=== PATIENT | female | born 1955 ===

== ENCOUNTER 2023-08-07 09:06 | Outpatient (REF) | payer OTHER, SELFPAY ==
--- NOTE | ~2023-08-07 | XR_ITS ---
EXAM: X-RAY LUMBAR SPINE AND RIGHT HIP CLINICAL INFORMATION: Right-sided low back pain, chronic right hip pain. TECHNIQUE: 3 views of the lumbar spine. 2 views of the right hip. COMPARISON: None. FINDINGS: Lumbar spine: The bones are diffusely demineralized. Surgical clips in the right upper quadrant. Advanced degenerative changes in the imaged lower thoracic spine. Advanced facet arthritis in the eji-sx-vbpgo lumbar spine. Advanced multilevel lumbar spondylosis with multilevel loss of disc space height and anterior hypertrophic change/syndesmophytes. Abundant transverse calcifications extending from the lower lumbar spine along the superior aspects of the bilateral iliac wings characteristic of ossification of ligaments. Degenerative changes in the imaged lower thoracic spine. Degenerative changes with sclerosis and narrowing in the bilateral sacroiliac joints. XR/XR lumbar spine 2-3V IMPRESSION: 1. Advanced multilevel lumbar spondylosis. 2. Advanced facet arthritis in the mid to lower lumbar spine. 3. Degenerative changes with sclerosis and narrowing in the bilateral sacroiliac joints. 4. Abundant transverse calcifications extending from the lower lumbar spine along the superior aspects of the bilateral iliac wings characteristic of ossification of ligaments, as well as other associated findings as detailed above suggest a possible component of an inflammatory arthritis such as ankylosing spondylitis. Correlation with clinical exam recommended to determine further management.
--- NOTE | ~2023-08-07 | XR_ITS ---
EXAM: X-RAY LUMBAR SPINE AND RIGHT HIP CLINICAL INFORMATION: Right-sided low back pain, chronic right hip pain. TECHNIQUE: 3 views of the lumbar spine. 2 views of the right hip. COMPARISON: None. FINDINGS: Lumbar spine: The bones are diffusely demineralized. Surgical clips in the right upper quadrant. Advanced degenerative changes in the imaged lower thoracic spine. Advanced facet arthritis in the pvy-ys-hbbol lumbar spine. Advanced multilevel lumbar spondylosis with multilevel loss of disc space height and anterior hypertrophic change/syndesmophytes. Abundant transverse calcifications extending from the lower lumbar spine along the superior aspects of the bilateral iliac wings characteristic of ossification of ligaments. Degenerative changes in the imaged lower thoracic spine. Degenerative changes with sclerosis and narrowing in the bilateral sacroiliac joints. XR/XR hip RT w PEL1V IMPRESSION: 1. Advanced multilevel lumbar spondylosis. 2. Advanced facet arthritis in the mid to lower lumbar spine. 3. Degenerative changes with sclerosis and narrowing in the bilateral sacroiliac joints. 4. Abundant transverse calcifications extending from the lower lumbar spine along the superior aspects of the bilateral iliac wings characteristic of ossification of ligaments, as well as other associated findings as detailed above suggest a possible component of an inflammatory arthritis such as ankylosing spondylitis. Correlation with clinical exam recommended to determine further management.
[2023-08-07 10:34] LABS: Potassium 4.5 mmol/L (3.3-5.1)
== END 2023-08-07 09:07 | disposition home or self-care (01) ==
LOC: HO.XRAY 09:06
PROVIDERS: PCP Internal Medicine; Visit Provider Internal Medicine
DX: M47.816 Spondylosis without myelopathy or radiculopathy, lumbar region (principal); M24.19 Other articular cartilage disorders, other specified site; E87.5 Hyperkalemia; M25.551 Pain in right hip; M54.41 Lumbago with sciatica, right side; G89.29 Other chronic pain
CPT/HCPCS: 36415; 72100; 73502; 84132

== ENCOUNTER 2023-11-13 08:45 | Outpatient (REF) | payer OTHER, SELFPAY ==
--- NOTE | ~2023-11-13 | FL_ITS ---
EXAMINATION: XR FLUOROSCOPY UPPER GI WITH AIR CLINICAL INFORMATION: Dysphagia COMPARISON: None TECHNIQUE: Fluoroscopic air contrast upper GI examination was performed utilizing standard techniques with thin and thick barium and effervescent granules. Numerous spot images were obtained. FINDINGS: Lateral cine images of the oropharynx and hypopharynx demonstrate normal swallow mechanism with normal epiglottic inversion and soft palate elevation. No tracheal penetration, glottic or subglottic aspiration identified. No nasopharyngeal reflux present. There is a small pharyngeal diverticulum present. There was no significant cricopharyngeal achalasia. There is moderate extrinsic compression of the posterior cervical esophagus at level C5-C6 due to an anterior bridging osteophyte. Dual and single contrast images of the esophagus demonstrate normal caliber and contour. There is felinization of the mid and distal esophageal mucosa. No evidence of stricture, mass, or ulcerations identified. There is to and fro motion of the barium column with nonpropulsive tertiary contractions noted throughout the esophagus. Surgical clips are present in the right upper quadrant. No evidence of hiatus hernia identified. No significant gastroesophageal reflux was seen during the course of the examination and on reflux views. Dual contrast and single contrast images of the stomach demonstrated a normal contour. The gastric rugal folds are mildly thickened appearance which suggests gastritis. No masses or ulcerations are seen. And mucosal pattern without evidence of mass, ulceration, or other abnormality. Contrast freely passed into the gastric antrum and duodenal bulb without delay. Single and air-contrast images of the duodenal bulb demonstrate no abnormality. The duodenal sweep has a normal appearance, course, and mucosal fold appearance. The imaged proximal jejunum has a normal fold pattern and caliber. FLUOROSCOPY TIME: 5 minutes 10 seconds Number of Spot Images: 5 Number of Cine: 17 DOSE AREA PRODUCT: 2648 uGy-m2 (microgray-meter squared) FL/FL barium swallow with air IMPRESSION: 1. Small pharyngeal diverticulum is present. 2. Moderate extrinsic compression of the posterior cervical esophagus at the level of C5-C6 due to an anterior bridging osteophyte. 3. Esophageal dysmotility. 4. There is felinization of the mid and distal esophagus. This is a benign finding that can be associated with chronic reflux. 5. Status post cholecystectomy. 6. Mildly thickened gastric rugal folds, which suggest gastritis. This procedure was performed by Victoriano Jacome PA-C, and supervised by Dr. Cain
== END 2023-11-13 08:46 | disposition home or self-care (01) ==
LOC: HO.XRAY 08:45
PROVIDERS: PCP Internal Medicine; Visit Provider Internal Medicine
DX: R13.13 Dysphagia, pharyngeal phase (principal)
CPT/HCPCS: 74221

== ENCOUNTER → 2023-11-13 08:47 | Outpatient (BNV) | payer OTHER, SELFPAY | PROVIDERS: PCP Internal Medicine; Visit Provider Physician Assistant Surgical | DX: R13.10 Dysphagia, unspecified (principal) | CPT/HCPCS: 74246 ==

== ENCOUNTER 2023-12-29 11:13 | Emergency (ER) | payer OTHER, SELFPAY ==
--- NOTE | ~2023-12-29 | CT_ITS ---
EXAMINATION: CT HEAD WITHOUT CONTRAST CT CERVICAL SPINE WITHOUT CONTRAST CLINICAL INFORMATION: Fall. COMPARISON: None currently available TECHNIQUE: CT of the head and cervical spine were performed without intravenous contrast. Multiplanar reformats were rendered and reviewed. This CT examination was performed using dose optimization techniques as appropriate, variously including the following: *Automated exposure control *Adjustment of mA and/or kV according to patient size (this includes techniques or standardized protocols for targeted exams where dose is matched to indication/reason for exam; i.e. extremities or head) *Use of iterative reconstruction technique DLP: 1162 mGy-cm. FINDINGS: CT head: No intracranial hemorrhage, large infarction, or mass lesion is seen. Nonspecific bilateral periventricular white matter hypodensity No extra-axial collection is appreciated. The ventricles are normal in size and configuration without evidence of hydrocephalus. The visualized paranasal sinuses appear clear. Scattered bilateral mastoid air cell opacification. Right harvey bullosa. Mild deviation of the nasal septum toward the left. CT cervical spine: The vertebral body heights appear maintained. No cervical spine fracture is seen. The cervical alignment appears normal. Florid, flowing ossification along the anterior aspects of C2-C5 as well as C6-C7. Posterior flowing ossification most notably at C6-C7, with associated narrowing of the spinal canal. Relative preservation of disc spaces, with mild disc space narrowing at C6-C7. The paraspinal soft tissues appear within normal limits. The partially imaged lung apices appear clear. CT/CT head/brain wo IV con IMPRESSION: CT head: No acute intracranial finding. Nonspecific bilateral periventricular white matter hypodensity. Differential diagnosis includes, but is not limited to, chronic ischemic changes and, less likely, demyelinating disease, etc. Scattered bilateral mastoid air cell opacification suggesting mastoiditis. CT cervical spine: No cervical spine fracture or traumatic malalignment identified. Findings consistent with cervical spinal diffuse idiopathic skeletal hyperostosis (DISH). Electronically signed by: Naldo Edwards MD 12/29/2023 01:04 PM EDT
--- NOTE | ~2023-12-29 | CT_ITS ---
EXAMINATION: CT HEAD WITHOUT CONTRAST CT CERVICAL SPINE WITHOUT CONTRAST CLINICAL INFORMATION: Fall. COMPARISON: None currently available TECHNIQUE: CT of the head and cervical spine were performed without intravenous contrast. Multiplanar reformats were rendered and reviewed. This CT examination was performed using dose optimization techniques as appropriate, variously including the following: *Automated exposure control *Adjustment of mA and/or kV according to patient size (this includes techniques or standardized protocols for targeted exams where dose is matched to indication/reason for exam; i.e. extremities or head) *Use of iterative reconstruction technique DLP: 1162 mGy-cm. FINDINGS: CT head: No intracranial hemorrhage, large infarction, or mass lesion is seen. Nonspecific bilateral periventricular white matter hypodensity No extra-axial collection is appreciated. The ventricles are normal in size and configuration without evidence of hydrocephalus. The visualized paranasal sinuses appear clear. Scattered bilateral mastoid air cell opacification. Right harvey bullosa. Mild deviation of the nasal septum toward the left. CT cervical spine: The vertebral body heights appear maintained. No cervical spine fracture is seen. The cervical alignment appears normal. Florid, flowing ossification along the anterior aspects of C2-C5 as well as C6-C7. Posterior flowing ossification most notably at C6-C7, with associated narrowing of the spinal canal. Relative preservation of disc spaces, with mild disc space narrowing at C6-C7. The paraspinal soft tissues appear within normal limits. The partially imaged lung apices appear clear. CT/CT cervical spine wo IV con IMPRESSION: CT head: No acute intracranial finding. Nonspecific bilateral periventricular white matter hypodensity. Differential diagnosis includes, but is not limited to, chronic ischemic changes and, less likely, demyelinating disease, etc. Scattered bilateral mastoid air cell opacification suggesting mastoiditis. CT cervical spine: No cervical spine fracture or traumatic malalignment identified. Findings consistent with cervical spinal diffuse idiopathic skeletal hyperostosis (DISH). Electronically signed by: Naldo Edwards MD 12/29/2023 01:04 PM EDT RP
--- NOTE | ~2023-12-29 | CT_ITS ---
EXAMINATION: CT FACIAL BONES WITHOUT CONTRAST CLINICAL INFORMATION: Fall. COMPARISON: None available. TECHNIQUE: CT of the maxillofacial structures was performed without intravenous contrast. Multiplanar reformats were rendered and reviewed. This CT examination was performed using dose optimization techniques as appropriate, variously including the following: *Automated exposure control *Adjustment of mA and/or kV according to patient size (this includes techniques or standardized protocols for targeted exams where dose is matched to indication/reason for exam; i.e. extremities or head) *Use of iterative reconstruction technique DLP: 1162 mGy-cm FINDINGS: No significant preseptal soft tissue swelling is appreciated. The orbital miles and orbital rims appear intact. There is no infiltration of the intraorbital fat or evidence of retrobulbar hematoma. The extraocular muscles and optic nerve sheath complexes are symmetric and normal in appearance. The globes appear normal and symmetric. The zygomas and zygomaticomaxillary buttresses appear intact. The nasal bones and tivr-mgiqhq-cyvjana complex appear intact. Right harvey bullosa. Mild deviation of the nasal septum toward the left. The maxillary alveolus and hard palate appear intact. The mandible appears intact, with mandibular condyles normally positioned within the glenoid fossa. The osseous structures of the central skull base appear intact. The paranasal sinuses appear clear, without fluid levels. The middle ear cavities appear clear. Scattered bilateral mastoid air cell opacification. CT/CT facial bones wo IV con IMPRESSION: No acute traumatic injury identified. Electronically signed by: Naldo Edwards MD 12/29/2023 01:11 PM EDT
[2023-12-29 11:27] VITALS: BP 175/77; PULSE 83; RESP 16; TEMP 36.2; O2SAT 100; BMI 28.1
--- NOTE | 2023-12-29 11:30 | ED.GENADULT ---
HPI - General Adult General Chief complaint: Fall Stated complaint: Fall nose inj Time Seen by Provider: 12/29/23 13:58 Source: patient, family, RN notes reviewed and old records reviewed Mode of arrival: EMS Limitations: no limitations History of Present Illness ED Provider: Jake MARES narrative: 68-year-old female presents for evaluation of a facial injury. Patient reports that she was taking the trash out this morning. She tripped and fell forward while she was taking the trash out She landed on her face She did not lose consciousness She complains of mild right-sided neck pain and mostly pain to her nose. She reports that her nose was bleeding for a few minutes but did resolve She is not anticoagulated Related Data Allergies Allergy/AdvReac Type Severity Reaction Status Date / Time Tetanus Vaccines and Toxoid Allergy Unknown UNKNOWN Verified 12/29/23 11:31 [Tetanus] Review of Systems Constitutional: Constitutional: Denies body ache(s), Denies chills, Denies fever(s), Denies frequent falls and Reports headache(s) ENT: Denies vertigo, Denies dizziness, Reports headache(s) and Reports neck pain Cardiovascular: Cardiovascular: Denies chest pain and Denies dyspnea Respiratory: Respiratory: Denies cough and Denies dyspnea Gastrointestinal: Gastrointestinal: Denies abdominal pain, Denies nausea and Denies vomiting Musculoskeletal: Musculoskeletal: Denies back pain and Reports neck pain Integumentary/Breasts: Skin/Breast: Denies rash and Denies wounds Neurologic: Denies vertigo, Denies dizziness, Denies frequent falls and Reports headache(s) Physical Exam ED Vital Signs: Vital Signs - 24 hr 12/29/23 11:27 Temperature 97.2 F Pulse Rate 83 Respiratory Rate 16 Blood Pressure 175/77 H Pulse Oximetry 100 Oxygen Delivery Method Room Air BMI result Body Mass Index 28.1 Const General: healthy appearing, comfortable, no acute distress, alert and awake Nutritional Appearance: well nourished Orientation/consciousness: patient oriented x3 HENMT Other: Superficial contusion with abrasion to the tip of the nose. No significant deep wounds or lacerations Eyes Eyelids: Yes eyelids normal Conjunctivae: conjunctivae normal Sclerae: sclerae normal Corneas: corneas normal Pupils: Equal, round and reactive pupils present EOM: EOMs intact bilaterally Neck Neck: Yes full ROM Resp Effort & Inspection: normal respiratory effort, able to speak in complete sentences and not labored GI Inspection: No distended Palpation (GI): Soft to palpation, not firm, nontender, no guarding and not rigid Skin General skin exam: no rashes or lesions noted and elasticity normal Neuro General: patient oriented x3 Cranial nerves: Yes CN's II-XII intact bilaterally, Yes Equal, round and reactive pupils present and Yes Bilaterally intact EOM present Cognition (Neuro): normal cognition Extrem Other: Moving all extremities well without any obvious deformities Course Course Course Narrative: RME, this is a rapid medical exam performed by Luis Carlos Joseph please refer to primary provider for complete H&P- 68 year old female presents for evaluation after a fall. She reports that she fell while taking out the trash. This was a nonsyncopal fall. She reports tripping and falling face forward. She reports that she fell on her nose and had a bloody nose, this has since stopped. She has 9/10 pain to her nose. She complains of a headache and neck pain. She has no focal neurologic deficits. Plan for CT imaging of her brain, cervical spine, and facial bones Medical Decision Making Medical Decision Making MDM Narrative: 68-year-old female presents for evaluation of a nonsyncopal fall. She reports tripping while taking the trash out. CT scan of the brain, facial bones and cervical spine were ordered that did not show any traumatic injuries. Patient be discharged with symptomatic care only Differential Diagnosis Differential Diagnoses: The differential diagnosis associated with the presentation includes Contusion Hematoma Fracture Dislocation Nasal fracture Radiology Impression Discussion of test interpretation with radiology: I have reviewed the radiologist's reading. Radiologist Impression: FINDINGS: CT head: No intracranial hemorrhage, large infarction, or mass lesion is seen. Nonspecific bilateral periventricular white matter hypodensity No extra-axial collection is appreciated. The ventricles are normal in size and configuration without evidence of hydrocephalus. The visualized paranasal sinuses appear clear. Scattered bilateral mastoid air cell opacification. Right harvey bullosa. Mild deviation of the nasal septum toward the left. CT cervical spine: The vertebral body heights appear maintained. No cervical spine fracture is seen. The cervical alignment appears normal. Florid, flowing ossification along the anterior aspects of C2-C5 as well as C6-C7. Posterior flowing ossification most notably at C6-C7, with associated narrowing of the spinal canal. Relative preservation of disc spaces, with mild disc space narrowing at C6-C7. The paraspinal soft tissues appear within normal limits. The partially imaged lung apices appear clear. CT/CT head/brain wo IV con IMPRESSION: CT head: No acute intracranial finding. Nonspecific bilateral periventricular white matter hypodensity. Differential diagnosis includes, but is not limited to, chronic ischemic changes and, less likely, demyelinating disease, etc. Scattered bilateral mastoid air cell opacification suggesting mastoiditis. CT cervical spine: No cervical spine fracture or traumatic malalignment identified. Findings consistent with cervical spinal diffuse idiopathic skeletal hyperostosis (DISH). FINDINGS: No significant preseptal soft tissue swelling is appreciated. The orbital miles and orbital rims appear intact. There is no infiltration of the intraorbital fat or evidence of retrobulbar hematoma. The extraocular muscles and optic nerve sheath complexes are symmetric and normal in appearance. The globes appear normal and symmetric. The zygomas and zygomaticomaxillary buttresses appear intact. The nasal bones and qxah-hcbdll-uyxhlnp complex appear intact. Right harvey bullosa. Mild deviation of the nasal septum toward the left. The maxillary alveolus and hard palate appear intact. The mandible appears intact, with mandibular condyles normally positioned within the glenoid fossa. The osseous structures of the central skull base appear intact. The paranasal sinuses appear clear, without fluid levels. The middle ear cavities appear clear. Scattered bilateral mastoid air cell opacification. CT/CT facial bones wo IV con IMPRESSION: No acute traumatic injury identified. Discharge Plan Discharge Clinical Impression: Contusion of face Patient Disposition: Home, Self-Care Instructions: Facial Contusion (ED) Additional Instructions: The CT scan of your head, the bones of your face, and your cervical spine/neck did not show any significant injuries. Your nose is not broken You may use ibuprofen or Tylenol for pain Ice the sore area Follow-up with your primary doctor, return for new or worsening symptoms Interventions: ED Discharge Assessment Last Done: 12/29/23 14:00 Discharge Date/Time: 12/29/23 14:02 Print Language: Faroese
[2023-12-29 14:00] VITALS: BP 175/77; PULSE 83; RESP 16; TEMP 36.2; O2SAT 100
== END 2023-12-29 14:06 | disposition home or self-care (01) ==
PROVIDERS: Emergency Provider Emergency Medicine; PCP Internal Medicine
DX: S00.33XA Contusion of nose, initial encounter (principal); W01.0XXA Fall on same level from slipping, tripping and stumbling without subsequent striking against object, initial encounter; M54.2 Cervicalgia; Y93.89 Activity, other specified; Y92.009 Unspecified place in unspecified non-institutional (private) residence as the place of occurrence of the external cause; Y99.9 Unspecified external cause status
CPT/HCPCS: 70450; 70486; 72125; 99282; 99284